=== PATIENT | female | born 1975 | race Caucasian/White ===

== ENCOUNTER 2022-09-30 12:57 | Emergency (ER) | payer MEDICAID ==
[~2022-09-30] VITALS: Ht 167.6 cm; Wt 79.8 kg
[2022-09-30 13:00] VITALS: BP 117/77
[2022-09-30] MEDS ORDERED: KETOROLAC 30MG VIAL (30MG/ML) IM ONE (14:00)
[2022-09-30] MEDS ORDERED: BENZ-39 PO (15:44)
[2022-09-30] MEDS ORDERED: NAPR-1023 PO (15:44)
== END 2022-09-30 16:30 | disposition home or self-care (01) ==
LOC: EDH 12:57
DX: S52.502A Unspecified fracture of the lower end of left radius, initial encounter for closed fracture (principal); R05.9 Cough, unspecified; F17.200 Nicotine dependence, unspecified, uncomplicated; R07.89 Other chest pain; Z86.73 Personal history of transient ischemic attack (TIA), and cerebral infarction without residual deficits; Z88.0 Allergy status to penicillin; Z88.5 Allergy status to narcotic agent; Z90.49 Acquired absence of other specified parts of digestive tract; W01.10XA Fall on same level from slipping, tripping and stumbling with subsequent striking against unspecified object, initial encounter; Y93.89 Activity, other specified; Y92.89 Other specified places as the place of occurrence of the external cause; Y99.8 Other external cause status
CPT/HCPCS: 99284; 29105; 71045; 73070; 73110; J1885

== ENCOUNTER 2023-09-22 21:02 | Emergency (ER) | payer MEDICAID ==
[~2023-09-22] VITALS: Ht 167.6 cm; Wt 78.0 kg
[~2023-09-22 21:02] MED LIST: BENZ-39 PO; NAPR-1023 PO
[2023-09-22 21:41] LABS: BASOPHILS # (AUTO) 0.01 K/uL (0.00-0.20); BASOPHILS % (AUTO) 0.1 % (0.0-5.0); EOSINOPHILS # (AUTO) 0.09 K/uL (0.00-0.70); EOSINOPHILS % (AUTO) 1.1 % (0.0-8.0); HEMATOCRIT 38.8 % (36-48); IMMATURE GRANULOCYTE ABSOLUTE 0.06 K/uL (0-1); LYMPHOCYTES # (AUTO) 2.4 K/uL (1.0-4.8); LYMPHOCYTES % (AUTO) 28.7 % (21.0-51.0); MEAN CORPUSCULAR HEMOGLOBIN 30.9 pg (27.0-33.0); MEAN CORPUSCULAR HGB CONC 35.3 g/dL (32.0-36.0); MEAN CORPUSCULAR VOLUME 87.4 fL (79-99); MONOCYTES # (AUTO) 0.7 K/uL (0.1-1.0); MONOCYTES % (AUTO) 7.8 % (3.0-13.0); NEUTROPHILS # (AUTO) 5.2 K/uL (1.8-7.7); NEUTROPHILS % (AUTO) 61.6 % (40.0-77.0); PLATELET COUNT (AUTO) 264 K/uL (130-400); RED BLOOD CELL COUNT(AUTO) 4.44 MIL/uL (4.00-5.50); RED CELL DISTRIBUTION WIDTH 13.4 % (11.0-15.5); WHITE BLOOD COUNT (AUTO) 8.5 K/uL (4.8-10.8)
[2023-09-22 21:45] LABS: APPEARANCE,URINE CLEAR (CLEAR); BILIRUBIN,URINE NEGATIVE (NEGATIVE); COLOR,URINE COLORLESS (YELLOW); GLUCOSE, URINE (UA) NEGATIVE (NEGATIVE); KETONES,URINE NEGATIVE (NEGATIVE); LEUKOCYTE ESTERASE ,URINE NEGATIVE Leu/uL (NEGATIVE); NITRATE,URINE NEGATIVE (NEGATIVE); OCCULT BLOOD,URINE NEGATIVE (NEGATIVE); PH,URINE 6.5 (5.0-8.0); PROTEIN,URINE NEGATIVE (NEGATIVE); UROBILINOGEN,URINE 0.2 mg/dL (0.2-1.0)
[2023-09-22 21:46] LABS: ADD UA MICROSCOPIC NO
[2023-09-22] MEDS: LACTATED RINGERS 1000ML 1,000 ML IV ONE (21:46)
[2023-09-22 21:54] LABS: POTASSIUM 3.6 mmol/L (3.5-5.1)
[2023-09-22 22:03] LABS: ALBUMIN 3.8 g/dL (3.5-5.0); BILIRUBIN,TOTAL 0.2 mg/dL (0.2-1.0); MAGNESIUM 1.8 mg/dL (1.80-2.40); TOTAL PROTEIN, SERUM 6.9 g/dL (6.0-8.3)
[2023-09-23 00:28] VITALS: BP 123/75; PULSE 82; RESP 18; O2SAT 98
== END 2023-09-23 00:40 | disposition home or self-care (01) ==
LOC: EDH 21:02
DX: R07.89 Other chest pain (principal); R20.0 Anesthesia of skin; F41.9 Anxiety disorder, unspecified; Z88.0 Allergy status to penicillin; Z88.5 Allergy status to narcotic agent; Z88.8 Allergy status to other drugs, medicaments and biological substances; Z79.899 Other long term (current) drug therapy; Z90.49 Acquired absence of other specified parts of digestive tract; Z90.710 Acquired absence of both cervix and uterus
CPT/HCPCS: 99285; 96360; 96361; 71045; 83735; 84484; 80053; 83690; 85025; 81003; 81025; 36415; 93005; J7120

== ENCOUNTER → 2024-10-03 | Emergency (ER) | payer MEDICAID ==
[~2024-10-03] VITALS: Ht 167.6 cm; Wt 66.7 kg
[~2024-10-03] MED LIST changes: -NAPR-1023 PO; +NAPR-1194 PO
--- NOTE | 2024-10-03 12:45 | EKG ---
[facility] Test Date: 2024-10-03 Test Time: 12:41:33 Pat Name: MOE JONAS Department: ED Room: Gender: F House Player: [id number] : [id number] Requested By: GAYATHRI RICHARDS Order Number: [id number] Reading MD: Desean Styles Measurements Intervals [place] Rate: 84 P: 68 CO: 138 QRS: 52 QRSD: 94 T: 55 QT: 387 QTc: 457 Interpretive Statements Sinus rhythm Compared to ECG 09/22/2023 21:05:46 No significant changes Electronically Signed On 10-04-2024 10:33:21 CDT by Desean Styles Please click the below link to view image of tracing.
[2024-10-03 13:06] LABS: IMMATURE GRANULOCYTE ABSOLUTE 0.03 K/uL (0-1); NUCLEATED RED BLOOD CELLS 0.0 % (0.0-0.19); PLATELET COUNT (AUTO) 235 K/uL (130-400); RED BLOOD CELL COUNT(AUTO) 4.28 MIL/uL (4.00-5.50); RED CELL DISTRIBUTION WIDTH 13.0 % (11.0-15.5); WHITE BLOOD COUNT (AUTO) 5.9 K/uL (4.8-10.8)
[2024-10-03 13:10] LABS: CREATININE 0.8 mg/dL (0.5-1.0); GLOMERULAR FILTR. RATE CALC 90.0 mL/min (>90); GLUCOSE,RANDOM 118.0 mg/dL (70-105); SODIUM SERUM 144.0 mmol/L (136-145); UREA NITROGEN, BLOOD 17.0 mg/dL (7-18)
[2024-10-03 13:29] LABS: APPEARANCE,URINE CLEAR (CLEAR); GLUCOSE, URINE (UA) NEGATIVE (NEGATIVE); LEUKOCYTE ESTERASE ,URINE NEGATIVE Leu/uL (NEGATIVE); NITRATE,URINE NEGATIVE (NEGATIVE); OCCULT BLOOD,URINE NEGATIVE (NEGATIVE); SQUAMOUS EPITHELIAL CELL,UR RARE /HPF (0-2)
--- NOTE | 2024-10-03 13:37 | HMCIMG ---
EXAM: CR Chest, 1 View. CLINICAL HISTORY: pain COMPARISON: None provided. FINDINGS: LUNGS: There is no mass, infiltrate, or acute pulmonary abnormality. PLEURAL SPACES: No pleural effusion or pneumothorax. MEDIASTINUM: The cardiomediastinal silhouette is within normal limits. BONES: No aggressive appearing osseous lesion seen. IMPRESSION: No acute cardiopulmonary pathology is evident. /[place]
[2024-10-03 15:07] LABS: AMPHET/METH SCREEN,URINE NEGATIVE (NEGATIVE); BARBITURATE SCREEN, URINE NEGATIVE (NEGATIVE); CANNABINOID SCREEN,URINE NEGATIVE (NEGATIVE); COCAINE SCREEN,URINE NEGATIVE (NEGATIVE)
--- NOTE | 2024-10-03 16:13 | HMCIMG ---
EXAM: CT Head Without IV contrast. CLINICAL HISTORY: Numbness TECHNIQUE: Axial computed tomography images of the head/brain without intravenous contrast. COMPARISON: None provided. FINDINGS: BRAIN: No evidence of acute hemorrhage. No mass lesion. No CT evidence for acute territorial infarct. No midline shift or extra-axial collections. VENTRICLES: No hydrocephalus. ORBITS: The orbits are unremarkable. SINUSES AND MASTOIDS: The paranasal sinuses and mastoid air cells are clear. BONES: No fracture. SOFT TISSUES: Unremarkable. IMPRESSION: No acute intracranial abnormality. /[place]
--- NOTE | 2024-10-03 16:38 | NUR ---
TRANSFER PATIENT ACCEPTED TO [facility]
--- NOTE | 2024-10-03 17:56 | ERN ---
General Chief Complaint: Chest Pain Stated Complaint: CHEST PAIN Time Seen by MD: 12:30 Time Seen by Midlevel: 12:30 Source: patient, family, EMS History of Present Illness Initial Comments 49-year-old female presents to the emergency department by EMS due to chest pain. Per patient she was also having elevated heart rate of aproximally 150s to 170bpm. Patient states her symptoms has been occurring off and on for the past couple of months worsening over the past few days. States she has been having numbness to the left side of the face and has a history of a TIA. Denies any headache, shortness of breath, abdominal pain or further associated symptoms. PMHx anxiety Allergies: Coded Allergies: Penicillins (Unverified Allergy, Unknown, 09/30/22) codeine (Unverified Allergy, Unknown, 09/30/22) hydrocodone (Unverified Allergy, Unknown, 09/30/22) morphine (Unverified Allergy, Unknown, 09/30/22) Home Meds Active Scripts Naproxen (Naproxen) 500 Mg Tablet, 500 MG PO BID, #14 TAB 0 Refills Prov:JOHN REHMAN NP 09/30/22 Benzonatate (Tessalon Perles) 100 Mg Cap, 100 MG PO TID for cough, #14 CAP 0 Refills Prov:JOHN REHMAN NP 09/30/22 Past Medical History Past Medical History: Anxiety Past Surgical History: Appendectomy, Hysterectomy Female( History) History: Not Applicable ROS Dictation Constitutional: Negative for fever,chills, and weight loss Eyes: Negative for injury, pain,redness, and discharge ENT: Negative for injury,pain or swelling Cardiovascular: Positive for chest pain Negative for palpitations, and edema Respiratory: Negative for shortness of breath, cough, and wheezing, Abdomen/GI: Negative for abdominal pain, nausea, vomiting, diarrhea, and constipation Back: Negative for injury and pain : Negative for painful urination, bleeding or discharge MS/Extremity: Negative for injury and deformity Skin: Negative for rash, and discoloration Neuro: Positive for numbness Negative for headache, weakness, tingling, and seizure Psych: Negative for suicide ideation, homicidal ideation, and hallucinations Physical Exam Physical Exam Dictation General: awake, alert, no acute distress Head/Face: Normocephalic, atraumatic Eyes: PERRL, EOMI, normal conjunctiva ENT: oral cavity clear, oral mucosa moist Neck: Supple, normal range of motion Cardiovascular: RRR, normal S1/S2 Respiratory: CTAB, no respiratory distress, no rales or wheezes Abdomen: Soft, non-tender, non-distended, normal bowel sounds, no guarding or rebound. Skin: Warm, dry, normal turgor, no rash MS/Extremity: Pulses equal, no cyanosis, neurovascular intact, FROM Neuro: COAx4, GCS 15, strength 5/5, CN 2-12 intact, normal cerebellar exam, normal gait Psych: Normal behavior, mood, and affect normal NIH STROKE SCALE: NIH STROKE SCALE Response (Comments) Value Level of Consciousness Alert 0 Ask patient month and their age Answers both correct 0 Command to open eyes, make fist and let go Obeys both correct 0 Best gaze (horizontal eye movement) Normal 0 Visual Field Testing No Visual Field Loss 0 Facial Paresis Normal / Symmetrical 0 Motor Function - Left Arm Normal 0 Motor Function - Right Arm Normal 0 Motor Function - Left Leg Normal 0 Motor Function - Right Leg Normal 0 Limb Ataxia No Ataxia 0 Sensory-pin prick to arms, legs, trunk and face Normal 0 Best Language (describe picture, name items and read) No Aphasia 0 Dysarthria (read several words) Normal Articulation 0 Extinction and Inattention Normal 0 Total 0 Results Laboratory and Microbiology Lab and Micro Result Laboratory Tests Test 10/03/24 12:59 10/03/24 13:11 10/03/24 13:15 10/03/24 13:58 White Blood Count 5.9 K/uL (4.8-10.8) Red Blood Count 4.28 MIL/uL (4.00-5.50) Hemoglobin 13.1 g/dL (12.0-16.0) Hematocrit 38.5 % (36-48) Mean Corpuscular Volume 90.0 fL (79-99) Mean Corpuscular Hemoglobin 30.6 pg (27.0-33.0) Mean Corpuscular Hemoglobin Concent 34.0 g/dL (32.0-36.0) Red Cell Distribution Width 13.0 % (11.0-15.5) Platelet Count 235 K/uL (130-400) Mean Platelet Volume 9.7 fL (7.5-10.5) Immature Granulocyte % (Auto) 0.5 % (0-1) Neutrophils (%) (Auto) 66.1 % (40.0-77.0) Lymphocytes (%) (Auto) 24.3 % (21.0-51.0) Monocytes (%) (Auto) 7.9 % (3.0-13.0) Eosinophils (%) (Auto) 0.9 % (0.0-8.0) Basophils (%) (Auto) 0.3 % (0.0-5.0) Neutrophils # (Auto) 3.9 K/uL (1.8-7.7) Lymphocytes # (Auto) 1.4 K/uL (1.0-4.8) Monocytes # (Auto) 0.5 K/uL (0.1-1.0) Eosinophils # (Auto) 0.05 K/uL (0.00-0.70) Basophils # (Auto) 0.02 K/uL (0.00-0.20) Absolute Immature Granulocyte (auto 0.03 K/uL (0-1) Nucleated Red Blood Cells 0.0 % (0.0-0.19) Sodium Level 144 mmol/L (136-145) Potassium Level 3.8 mmol/L (3.5-5.1) Chloride Level 108 mmol/L (101-111) Carbon Dioxide Level 25 mmol/L (21-32) Blood Urea Nitrogen 17 mg/dL (7-18) Creatinine 0.8 mg/dL (0.5-1.0) Glomerular Filtration Rate Calc 90 mL/min (>90) Random Glucose 118 mg/dL (70-105) H Total Calcium 8.5 mg/dL (8.5-10.1) Troponin I High Sensitivity 5 ng/L (4-50) 5 ng/L (4-50) Urine Opiates Screen NEGATIVE (NEGATIVE) Urine Barbiturates Screen NEGATIVE (NEGATIVE) Urine Phencyclidine Screen NEGATIVE (NEGATIVE) Urine Amphetamines Screen NEGATIVE (NEGATIVE) Urine Benzodiazepines Screen NEGATIVE (NEGATIVE) Urine Cocaine Screen NEGATIVE (NEGATIVE) Urine Marijuana (THC) Screen NEGATIVE (NEGATIVE) Urine Color COLORLESS (YELLOW) Urine Appearance CLEAR (CLEAR) Urine pH 7.5 (5.0-8.0) Urine Specific [place] 1.004 (1.001-1.031) Urine Protein NEGATIVE mg/dL (NEGATIVE) Urine Glucose (UA) NEGATIVE mg/dL (NEGATIVE) Urine Ketones NEGATIVE mg/dL (NEGATIVE) Urine Occult Blood NEGATIVE (NEGATIVE) Urine Nitrate NEGATIVE (NEGATIVE) Urine Bilirubin NEGATIVE mg/dL (NEGATIVE) Urine Urobilinogen 0.2 mg/dL (0.2-1.0) Urine Leukocyte Esterase NEGATIVE Zafar/uL Urine RBC 0-1 /HPF (0-1) Urine WBC 2-5 /HPF (0-1) H Urine Squamous Epithelial Cells RARE /HPF (0-2) Urine Bacteria None /HPF (None Seen) Labs Reviewed?: Yes EKG/XRAY/US/CT/MRI EKG Comment Date: 10/03/2024 Time: 1241 Rate: 84 EKG interpretation: Sinus rhythm, no STEMI Reviewed by ED Attending CT Scan Comment REASON: Numbness ORDERING PHYSICIAN: GAYATHRI RICHARDS PROCEDURE: HEAD WO - CT HEAD/BRAIN W/O CONTRAST EXAM: CT Head Without IV contrast. CLINICAL HISTORY: Numbness TECHNIQUE: Axial computed tomography images of the head/brain without intravenous contrast. COMPARISON: None provided. FINDINGS: BRAIN: No evidence of acute hemorrhage. No mass lesion. No CT evidence for acute territorial infarct. No midline shift or extra-axial collections. VENTRICLES: No hydrocephalus. ORBITS: The orbits are unremarkable. SINUSES AND MASTOIDS: The paranasal sinuses and mastoid air cells are clear. BONES: No fracture. SOFT TISSUES: Unremarkable. IMPRESSION: No acute intracranial abnormality. /[place] DICTATED BY: FLORENCE MACHADO Jr., MD DATE: 10/03/24 171 MDM MDM: Differential diagnosis: TIA, CVA, anxiety, NC Rationale: 49-year-old female presents to the emergency department by EMS due to chest pain. Per patient she was also having elevated heart rate of aproximally 150s to 170bpm. Patient states her symptoms has been occurring off and on for the past couple of months worsening over the past few days. States she has been having numbness to the left side of the face and has a history of a TIA. Denies any headache, shortness of breath, abdominal pain or further associated sympto ms. PMHx anxiety Per physical examination patient is in no acute distress, neurologically intact. Labs obtained CBCs nonspecific, chemistry is within normal limits. Initial troponin within normal limits repeat troponin within normal limits. Urine drug screen negative. Chest x-ray shows no acute abnormalities. CT head is unremarkable. Patient states she took four clonidine at home, Motrin, to magnesium is, for aspirins were given by EMS along with a nitroglycerin. Patient states the pain and numbness come and go. The patient transferred to [facility] for further neurological evaluation. Previous outside records reviewed: Old ER visits. Risk of complication and/or morbidity or mortality of patient management: None Medications-Per medication reconciliation Need for hospitalization: Patient does meet criteria for hospitalization. Need for emergency major/minor surgery: No There are no social concerns with this patient. Prescription drug management Prescriptions will include symptomatic care Patient's prior external medical records from other ER visits were reviewed by me as indicated. Prior testing and results from previous visits were reviewed. Prior tests were taken into account with medical decision making and resource u tilization, independent historian/historians were used to obtain complete medical history. I independently interpreted the test that were performed, results were reviewed by me and considered findings on radiology if ordered. Medical management and examination interpretation discussions were had by me with other qualified healthcare professionals as indicated for the patient's ca re. ED Course Orders Procedure Category Date Status Time Cbc With Differential LAB 10/03/24 Complete 12:30 Basic Metabolic Panel LAB 10/03/24 Complete 12:30 Urinalysis LAB 10/03/24 Complete W/Microscopic 12:30 Troponin I High LAB 10/03/24 Complete Sensitivity 12:30 12 Lead Ekg Tracing- EKG 10/03/24 Complete Technical 12:30 Chest 1vw RAD 10/03/24 Resulted 12:31 Acetaminophen 325 Tab PHA 10/03/24 Complete (Tylenol 325mg Tab 14:00 Troponin I High LAB 10/03/24 Complete Sensitivity 13:47 Drug Screen Urine LAB 10/03/24 Complete 13:56 Hydroxyzine 25mg Tab PHA 10/03/24 Complete (Atarax 25mg Tab) 15:30 Ct Head/Brain W/O CT 10/03/24 Resulted Contrast 15:45 Current Medications Medications (Trade) Dose Ordered Sig/Abrahan Route PRN Reason Start Time Stop Time Status Last Admin Dose Admin Acetaminophen (TYLenol 325MG TAB) 650 mg ONCE ONCE PO 10/03/24 14:00 10/03/24 14:01 DC 10/03/24 13:52 Hydroxyzine HCl (ATArax 25MG TAB) 25 mg ONCE ONCE PO 10/03/24 15:30 10/03/24 15:31 DC Vital Signs Date Time Temp Pulse Resp B/P (MAP) Pulse Ox O2 Delivery O2 Flow Rate FiO2 10/03/24 12:45 98.6 125 24 119/59 96 Room Air* 0 21 10/03/24 12:28 97.9 93 20 119/59 98 Room Air DX & DISP Disposition: Transfer Departure Impression: Primary Impression: Hx-TIA (transient ischemic attack) Additional Impression: Numbness Condition: Stable Referrals: SELF,REFERRAL (PCP) I performed the substantive portion of the visit. I have reviewed and personally made and approve the management plan that is documented in the notes by myself or the ROSS. I acknowledge full responsibility for the patient's management plan. GAYATHRI RICHARDS Oct 03, 2024 17:56
[2024-10-03 18:00] VITALS: BP 107/60; PULSE 68; RESP 18; TEMP 98; O2SAT 100
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
--- NOTE | 2024-10-03 18:47 | NUR ---
CALLED [facility] TO GIVE REPORT. SPOKE WITH MAIA GALEANO IN THE PCCU IN [facility].
== END ==
LOC: EDH 12:26
DX: G45.9 Transient cerebral ischemic attack, unspecified (principal); R20.0 Anesthesia of skin; F41.9 Anxiety disorder, unspecified; Z86.73 Personal history of transient ischemic attack (TIA), and cerebral infarction without residual deficits; Z88.0 Allergy status to penicillin; Z88.5 Allergy status to narcotic agent; Z90.49 Acquired absence of other specified parts of digestive tract; Z90.710 Acquired absence of both cervix and uterus
CPT/HCPCS: 36415; 70450; 71045; 80048; 80305; 81001; 84484; 85025; 93005; 99285

== ENCOUNTER 2025-03-06 02:50 | Emergency (ER) | payer MEDICAID ==
[~2025-03-06] VITALS: Ht 167.6 cm; Wt 81.6 kg
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
[2025-03-06 03:10] LABS: IMMATURE GRANULOCYTE ABSOLUTE 0.07 K/uL (0-1); NUCLEATED RED BLOOD CELLS 0.0 % (0.0-0.19); PLATELET COUNT (AUTO) 290 K/uL (130-400); RED BLOOD CELL COUNT(AUTO) 4.67 MIL/uL (4.00-5.50); RED CELL DISTRIBUTION WIDTH 13.1 % (11.0-15.5); WHITE BLOOD COUNT (AUTO) 11.6 K/uL (4.8-10.8)
[2025-03-06] MEDS: 0.9%NACL 1000ML 1,000 ML IV SCH (03:13)
[2025-03-06 03:18] LABS: APPEARANCE,URINE CLEAR (CLEAR); GLUCOSE, URINE (UA) NEGATIVE (NEGATIVE); LEUKOCYTE ESTERASE ,URINE NEGATIVE Leu/uL (NEGATIVE); NITRATE,URINE NEGATIVE (NEGATIVE); OCCULT BLOOD,URINE SMALL (NEGATIVE)
[2025-03-06 03:19] LABS: CREATININE 0.7 mg/dL (0.5-1.0); GLOMERULAR FILTR. RATE CALC 106 mL/min (>90); GLUCOSE,RANDOM 131 mg/dL (70-105); SODIUM SERUM 141 mmol/L (136-145); UREA NITROGEN, BLOOD 16 mg/dL (7-18)
[2025-03-06 03:20] LABS: ADD UA MICROSCOPIC YES
[2025-03-06 03:21] LABS: SQUAMOUS EPITHELIAL CELL,UR RARE /HPF (0-2)
[2025-03-06 03:24] LABS: ALCOHOL, BLOOD 222 mg/dL (0-10); ASPARTATE AMINOTRANSFERASE 22 U/L (10-37); TOTAL PROTEIN, SERUM 7.8 g/dL (6.0-8.3)
[2025-03-06 03:24] LABS: AMPHET/METH SCREEN,URINE NEGATIVE (NEGATIVE); BARBITURATE SCREEN, URINE NEGATIVE (NEGATIVE); CANNABINOID SCREEN,URINE NEGATIVE (NEGATIVE); COCAINE SCREEN,URINE NEGATIVE (NEGATIVE)
[2025-03-06] MEDS ORDERED: 0.9%NACL 1000ML 1,000 ML IV SCH (04:00)
--- NOTE | 2025-03-06 05:24 | NUR ---
patient up for discharge, pending ride
[2025-03-06 05:30] VITALS: BP 100/52; PULSE 92; RESP 18; TEMP 97.6; O2SAT 98
== END 2025-03-06 05:59 | disposition left against medical advice (07) ==
LOC: EDH 02:50
DX: F10.129 Alcohol abuse with intoxication, unspecified (principal); Z79.899 Other long term (current) drug therapy; Z88.0 Allergy status to penicillin; Z88.5 Allergy status to narcotic agent; Z90.49 Acquired absence of other specified parts of digestive tract; Z90.710 Acquired absence of both cervix and uterus; Y90.9 Presence of alcohol in blood, level not specified
CPT/HCPCS: 99283; 80076; 80048; 80305; 85025; 83605; 36415; 81001; J7030 ×3